=== PATIENT | male | born 1995 | race Two or more races ===

== ENCOUNTER 2019-12-04 17:15 | Emergency (ER) | payer BC, OTHER ==
[~2019-12-04] VITALS: Ht 182.9 cm; Wt 74.0 kg
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
[2019-12-04 18:22] VITALS: BP 140/77
--- NOTE | 2019-12-04 18:42 | NUR ---
PT TO CT
--- NOTE | 2019-12-04 18:58 | NUR ---
Pt resting in bed, asking for pain control at t his time. unlabored respirations. Assumed care from Mishel dillard.
[2019-12-04] MEDS ORDERED: HYDROcodone/APAP 5/325 TABLET ONE (19:09)
[2019-12-04] MEDS ORDERED: HYDROcodone/APAP 5/325 TABLET PO ONE (19:30)
--- NOTE | 2019-12-04 19:41 | NUR ---
Patient/Caregiver given discharge instructions and they have confirmed that they understand the instructions. Patient ambulatory with steady gait.
== END 2019-12-04 19:44 | disposition home or self-care (01) ==
LOC: ED 18:50
DX: S42.024A Nondisplaced fracture of shaft of right clavicle, initial encounter for closed fracture (principal); W18.09XA Striking against other object with subsequent fall, initial encounter; Y93.89 Activity, other specified; Y92.410 Unspecified street and highway as the place of occurrence of the external cause; Y99.8 Other external cause status
CPT/HCPCS: 70450; 99284